=== PATIENT | male | born 1950 | race Caucasian/White ===

== ENCOUNTER 2020-09-24 17:01 | Emergency (ER) | payer MEDICARE ==
[2020-09-24] MEDS ORDERED: Morphine 4 MG/ML VIAL ONE (18:04)
[2020-09-24] MEDS ORDERED: Ketorolac Tromethamine 30 MG/ML VIAL ONE (18:04)
[2020-09-24] MEDS ORDERED: Dexamethasone 10 MG/ML VIAL ONE (18:05)
[2020-09-24 18:21] LABS: #Basophils 0.1 thou/uL (0.0-0.2); #Eosinphils 0.2 thou/uL (0.0-0.7); #Monocytes 0.8 thou/uL (0.11-0.59); #Neutrophils 4.7 thou/uL (1.40-6.50); %Basophils 0.7 % (0.0-1.0); %Eosinophils 2.3 % (0.0-10.0); %Lymphocytes 25.6 % (21.0-51.0); %Monocytes 10.5 % (0.0-10.0); %Neutrophils 60.9 % (42.0-75.0); Hemoglobin 15.7 g/dL (14.0-18.0); Mean Corpuscular HGB CONC 34.6 g/dL (32.0-36.0); Mean Corpuscular Hemoglobin 33.6 pg (27.0-31.0); Mean Platelet Volume 6.5 fL (7.4-10.4); Platelet Count 232 thou/uL (130-400); RBC Distribution Width 11.6 % (11.5-14.5); Red Blood Cell (RBC) Count 4.69 mill/uL (4.70-6.10); White Blood Cell (WBC) Count 7.8 thou/uL (4.8-10.8)
[2020-09-24 18:41] LABS: ALT (SGPT) 31 U/L (8-55); AST (SGOT) 30 U/L (5-34); Albumin 4.1 g/dL (3.4-4.8); Alkaline Phosphatase 63 U/L (40-110); Anion Gap 17 mmol/L (10-20); BUN (Urea Nitrogen) 23 mg/dL (8.4-25.7); Bilirubin, Total 0.4 mg/dL (0.2-1.2); Calc. Creatinine Clearance 0 mL/min (70-130); Calcium 9.2 mg/dL (7.8-10.44); Carbon Dioxide 24 mmol/L (23-31); Chloride 107 mmol/L (98-107); Globulin 2.8 g/dL (2.4-3.5); Glucose 93 mg/dL (80-115); Potassium 4.8 mmol/L (3.5-5.1); Protein, Total 6.9 g/dL (5.8-8.1); Sodium 143 mmol/L (136-145)
--- NOTE | 2020-09-24 19:08 | CT ---
Exam: Head CT without contrast HISTORY: Fall. Pain. COMPARISON: none FINDINGS: Hemorrhage: No intraparenchymal hemorrhage or extra-axial hematoma. Brain parenchyma: Cortical bruner-white matter differentiation is preserved. No mass effect or midline shift. Basilar cisterns are patent. Ventricular system: Ventricles and sulci are patent and symmetric. Calvarium: Intact. Sinuses and mastoid air cells: Adequate aeration. IMPRESSION: No intracranial post traumatic sequelae.
--- NOTE | 2020-09-24 19:13 | CT ---
Exam: CT cervical spine without contrast HISTORY: Trauma. Pain. COMPARISON: None FINDINGS: No craniocervical dissociation. Appropriate alignment of the lateral masses of C1 and C2. Intact odon toid process Appropriate alignment of the facets. Straightening of normal cervical lordosis may be due to patient position, muscle spasm or cervical co llar. Soft tissue neck structures: No mass, lymphadenopathy or hematoma. No prevertebral soft tissue swelli ng. Upper mediastinum and lung apices: Unremarkable Central spinal canal: Moderate loss of disc space height and osteophyte formation at C5-C6 and C6-C7. Vertebral bodies: Cervical spine vertebral body height is maintained. No fracture. IMPRESSION: 1. No fracture 2. Degenerative disc disease at C5-C6 and C6-C7. 3. Straightening of cervical lordosis as described above. MRI if there is concern for ligamentous inj ury.
[2020-09-24] MEDS ORDERED: Lorazepam 2 MG/ML VIAL ONE (20:23)
--- NOTE | 2020-09-24 21:14 | MRI ---
Exam: MRI cervical spine without contrast HISTORY: Evaluate for ligamentous injury. Trauma. Fall.. COMPARISON: None FINDINGS: Appropriate T1 marrow signal intensity of the cervical vertebra. Cervical spine vertebral body heigh t is maintained. No fracture. Straightening of cervical lordosis is presumed to be positional. There is no significant STIR hyperintensity to suggest ligamentous injury or vertebral body edema Visualized brain parenchyma, cervicomedullary junction, cervical cord and the upper thoracic cord hav e a normal size and signal intensity C2-C3: No significant central canal stenosis and mild right foraminal narrowing due to uncovertebral hypertrophy. Patent left neural foramen. C3-C4: Desiccation with mild loss of disc space height. Broad-based disc bulge with central disc juan carlos iation. Mild central canal stenosis. Mild to moderate bilateral foraminal narrowing due to uncovertebral hypertrophy. C4-C5: Disc desiccation with mild loss of disc space height. Broad-based discussed by complex. Mild c entral canal stenosis. Moderate bilateral foraminal narrowing due to uncovertebral hypertrophy. C5-C6: Disc desiccation with moderate loss of disc space height. Broad-based discussed by complex. Mo derate central canal stenosis. Mild bilateral neural foraminal narrowing. C6-C7: Disc desiccation without significant loss of disc space height. Broad-based disc bulge without significant central canal stenosis. Moderate bilateral neural foraminal narrowing. C7-T1: No significant central canal stenosis or significant neural foraminal narrowing. IMPRESSION: 1. No fracture 2. No evidence of ligamentous injury. 3. Degenerative changes of the cervical spine as detailed above.
== END 2020-09-24 21:58 | disposition home or self-care (01) ==
LOC: ERS 17:01
DX: S16.1XXA Strain of muscle, fascia and tendon at neck level, initial encounter (principal); I48.91 Unspecified atrial fibrillation; E78.00 Pure hypercholesterolemia, unspecified; K21.9 Gastro-esophageal reflux disease without esophagitis; Z79.01 Long term (current) use of anticoagulants; Z79.899 Other long term (current) drug therapy; W01.10XA Fall on same level from slipping, tripping and stumbling with subsequent striking against unspecified object, initial encounter
CPT/HCPCS: 36415; 70450; 72125; 72141; 80053; 85025; 93005; 96374; 96375; J1100; J1885; J2060; J2270